=== PATIENT | male | born 1960 | race African-American/Black ===

== ENCOUNTER 2018-05-10 06:13 | Emergency (ER) | payer OTHER ==
[~2018-05-10] VITALS: Ht 172.7 cm; Wt 122.5 kg
[~2018-05-10 06:13] MED LIST: ANDRODERM1 EAC2 TRANSDERM; BENADRYL25 MG PO; BENICAR HCT 401 EAC1 PO; BENICAR20 MG PO; BYSTOLIC10 MG PO; CRESTOR40 MG PO; LAMISIL250 MG; LASIX 40 MG TAB40 M2 PO; LIPITOR; LIPITOR 20 MG T20 M1 PO; MEDROLDOSEPACK PO; METFORMIN HCL500 MG PO; NORCO 5-325 TA1 EACH PO; NORVASC10 MG PO; PEPCID20 MG PO; VIAGRA25 MG PO; VITAMIN D1000 UNI1
[2018-05-10] MEDS ORDERED: TESSALON PERLE100 MG PO (06:26)
[2018-05-10] MEDS ORDERED: NORCO 7.5-3251 EACH PO (07:57)
[2018-05-10] MEDS ORDERED: INDOMETHACIN 2525 MG PO (07:57)
[2018-05-10] MEDS ORDERED: SENNA-DOCUSATE1 EAC1 PO (07:57)
[2018-05-10 08:13] VITALS: BP 137/77
== END 2018-05-10 08:31 | disposition home or self-care (01) ==
LOC: ER 06:13
DX: M10.072 Idiopathic gout, left ankle and foot (principal); E11.9 Type 2 diabetes mellitus without complications; I10 Essential (primary) hypertension; Z90.89 Acquired absence of other organs; Z91.041 Radiographic dye allergy status